=== PATIENT | female | born 1980 | race Caucasian/White ===

== ENCOUNTER 2017-09-28 12:47 | Observation (INO) | payer OTHER ==
[2017-09-22 10:05] VITALS: BP 121/89
[~2017-09-28] VITALS: Ht 165.1 cm; Wt 66.0 kg
[~2017-09-28 12:47] MED LIST: CEFAZOLIN 1,000 MG ONE; IBUP200C8 PO
[2017-09-28] MEDS ORDERED: BUPIVACAINE/PF 0.5% ONE (13:24)
[2017-09-28] MEDS ORDERED: BUPIVACAINE/PF 0.25% ONE (13:25)
[2017-09-28] MEDS ORDERED: EPINEPHRINE 1 MG/ML, 1ML ONE (13:25)
[2017-09-28] MEDS ORDERED: LACTATED RINGERS 1,000 ML IV SCH (13:32)
[2017-09-28] MEDS ORDERED: LIDOCAINE 1%, 2ML SQ PRN (14:00)
[2017-09-28 14:08] LABS: ALANINE AMINOTRANSFERASE 21 U/L (12-78); ALBUMIN 4.1 g/dL (3.4-5.0); ANION GAP 10 mmol/L (5-15); CALCIUM 9.1 mg/dL (8.5-10.1); CHLORIDE 109 mmol/L (98-107); CREATININE 0.69 mg/dL (0.55-1.02)
[2017-09-28 14:10] LABS: ALKALINE PHOSPHATASE 42 U/L (45-117); BILIRUBIN,TOTAL 0.6 mg/dL (0.2-1.0)
[2017-09-28] MEDS ORDERED: VASOPRESSIN 20 UNIT/ML, 1ML ONE (14:53)
[2017-09-28] MEDS ORDERED: MIDAZOLAM 1 MG/ML, 2ML ONE (14:57)
[2017-09-28] MEDS ORDERED: FENTANYL PF 100 MCG/2ML ONE ×2 (14:57)
[2017-09-28] MEDS ORDERED: PROPOFOL 10 MG/ML, 20ML ONE (14:58)
[2017-09-28] MEDS ORDERED: ROCURONIUM 10 MG/ML,10ML ONE (14:58)
[2017-09-28] MEDS ORDERED: DEXAMETHASONE 4 MG/ML, 1ML ONE (15:00)
[2017-09-28] MEDS ORDERED: INDIGO CARMINE 0.8%, 5ML ONE (16:20)
[2017-09-28] MEDS ORDERED: ONDANSETRON 2MG/ML, 2ML ONE (16:48)
[2017-09-28] MEDS ORDERED: GLYCOPYRROLATE 0.4 MG/2 ML, 2ML ONE (16:55)
[2017-09-28] MEDS ORDERED: NEOSTIGMINE 1 MG/ML, 10ML ONE (16:55)
[2017-09-28] MEDS ORDERED: HYDROmorphone 2 MG/ML, 1ML ONE ×2 (16:58→18:05)
[2017-09-28] MEDS ORDERED: INTERCEED 3 X 4 INCH DRESSING ONE (17:09)
[2017-09-28] MEDS ORDERED: OXYTOCIN 10 UNITS/ML, 1ML ONE (17:21)
[2017-09-28] MEDS ORDERED: hydrALAzine 20 MG/ML, 1ML IV PRN (18:00)
[2017-09-28] MEDS ORDERED: ACETAMINOPHEN 325 MG TABLET PO PRN (18:00)
[2017-09-28] MEDS ORDERED: HYDROmorphone 1 MG/ML, 1ML IV PRN (18:00)
[2017-09-28] MEDS ORDERED: PROMETHAZINE 25 MG/ML, 1ML IV PRN (18:00)
[2017-09-28] MEDS ORDERED: OXYcodone 5 MG/5 ML ORAL.SOL UDC PO PRN (18:00)
[2017-09-28] MEDS ORDERED: LABETALOL 5MG/ML, 20ML IV PRN (18:00)
[2017-09-28] MEDS ORDERED: FENTANYL PF 100 MCG/2ML IV PRN (18:00)
[2017-09-28] MEDS ORDERED: ONDANSETRON 2MG/ML, 2ML IVPush PRN (18:00)
[2017-09-28] MEDS ORDERED: MEPERIDINE/PF 50 MG/ML ONE (18:05)
[2017-09-28] MEDS ORDERED: OXYcodone 5 MG/5 ML ORAL.SOL UDC ONE (18:05)
[2017-09-28] MEDS: MEPERIDINE/PF 25MG/0.5ML IVPush PRN ×2 (18:06→18:21)
[2017-09-28] MEDS ORDERED: KETOROLAC 30 MG/1 ML ONE (18:11)
[2017-09-28 19:49] VITALS: BP 129/75
[2017-09-28] MEDS: LACTATED RINGERS 1,000 ML IV SCH (20:00)
[2017-09-28] MEDS: MORPHINE SULFATE 4 MG/ML, 1ML IVPush PRN ×2 (20:31→23:36)
[2017-09-29] MEDS: KETOROLAC 30 MG/1 ML IV SCH ×3 (00:18→12:53)
[2017-09-29] MEDS: MORPHINE SULFATE 4 MG/ML, 1ML IVPush PRN (03:08)
[2017-09-29 03:11] VITALS: BP 108/58
[2017-09-29] MEDS: LACTATED RINGERS 1,000 ML IV SCH ×2 (04:00→12:00)
[2017-09-29 05:04] LABS: BASOPHILS # (AUTO) 0.01 x10^3/uL (0-0.1); BASOPHILS % (AUTO) 0 % (0-1); EOSINOPHILS % (AUTO) 0 % (1-7); LYMPHOCYTES # (AUTO) 1.24 x10^3/uL (1-3.4); LYMPHOCYTES % (AUTO) 14 % (22-44); MD NO; MEAN CORPUSCULAR HEMOGLOBIN 31.9 pg (27.0-34.8); MEAN CORPUSCULAR HGB CONC 34.4 g/dL (32.4-35.8); MEAN CORPUSCULAR VOLUME 92.7 fL (80-100); MEAN PLATELET VOLUME 9.3 fL (7.4-10.4); MONOCYTES # (AUTO) 0.57 x10^3/uL (0.2-0.8); MONOCYTES % (AUTO) 6 % (2-9); NEUTROPHILS # (AUTO) 7.25 x10^3/uL (1.8-6.8); NEUTROPHILS % (AUTO) 80 % (42-75); PLATELET COUNT 182 x10^3/uL (130-400); RED CELL DISTRIBUTION WIDTH 12.6 % (9.6-15.2)
[2017-09-29] MEDS: OXYcodone/APAP 5/325MG TABLET PO PRN ×4 (06:46→17:43)
[2017-09-29 06:47] VITALS: BP 114/71
[2017-09-29 15:49] VITALS: BP 110/73
[2017-09-29] MEDS ORDERED: OXYC-302 PO (17:37)
== END 2017-09-29 17:45 | disposition home or self-care (01) ==
LOC: OUT 12:47 → 4NOR 19:33 → OUT 22:34
PROVIDERS: ADMIT Obstetrics & Gynecology Reproductive Endocrinology; ATTEND Obstetrics & Gynecology Reproductive Endocrinology
DX: D25.1 Intramural leiomyoma of uterus (principal); D25.2 Subserosal leiomyoma of uterus; N84.0 Polyp of corpus uteri; N80.3 Endometriosis of pelvic peritoneum; N80.2 Endometriosis of fallopian tube
CPT/HCPCS: 36415; 58140; 58558; 80053; 81025; 85025; 86850; 86900; 88305; 93005; 96374; 96375; 96376; C1765; G0378; J0171; J0690; J1100; J1170; J1885; J2175; J2250; J2405; J2590; J2704; J2710; J3010; J3490; J7120

== ENCOUNTER 2018-09-07 13:47 | Outpatient (CLI) | payer OTHER ==
[~2018-09-07 13:47] MED LIST changes: -CEFAZOLIN 1,000 MG ONE; +OXYC-302 PO
[2018-09-07] MEDS ORDERED: BETAMETHASONE 6 MG/ML, 5ML IM ONE ×2 (14:23→14:30)
[2018-09-07] MEDS ORDERED: PREN1TAB60 PO (14:37)
== END 2018-09-07 14:47 | disposition home or self-care (01) ==
LOC: LDOP 13:47
PROVIDERS: ATTEND Obstetrics & Gynecology Maternal & Fetal Medicine
DX: O09.513 Supervision of elderly primigravida, third trimester (principal); Z3A.37 37 weeks gestation of pregnancy
CPT/HCPCS: 59025; 96372; 99211; J0702; G0463

== ENCOUNTER 2018-09-08 14:01 | Outpatient (CLI) | payer OTHER ==
[~2018-09-08] VITALS: Ht 165.1 cm; Wt 73.6 kg
[~2018-09-08 14:01] MED LIST changes: +PREN1TAB60 PO
[2018-09-08 14:07] VITALS: BP 109/72
[2018-09-08] MEDS ORDERED: BETAMETHASONE 6 MG/ML, 5ML IM ONE (14:30)
== END 2018-09-08 14:20 | disposition home or self-care (01) ==
LOC: LDOP 14:01
PROVIDERS: ATTEND Obstetrics & Gynecology Maternal & Fetal Medicine
DX: O09.513 Supervision of elderly primigravida, third trimester (principal); Z3A.37 37 weeks gestation of pregnancy
CPT/HCPCS: 59025; 96372; 99211; J0702; G0463

== ENCOUNTER 2018-09-09 05:25 | Inpatient (IN) | payer OTHER ==
[~2018-09-09] VITALS: Ht 165.1 cm; Wt 73.6 kg
[2018-09-09] MEDS ORDERED: SODIUM CITRATE/CITRIC ACID 30 ML UDC ONE (05:28)
[2018-09-09] MEDS: LACTATED RINGERS 1,000 ML IV SCH ×8 (05:28→19:06)
[2018-09-09] MEDS ORDERED: NEWBORN KIT ONE (05:28)
[2018-09-09] MEDS ORDERED: METOCLOPRAMIDE 5 MG/ML, 2ML ONE (05:28)
[2018-09-09] MEDS ORDERED: OXYTOCIN 30U/ 0.9% NaCL 500ML 500 ML ONE (05:29)
[2018-09-09] MEDS ORDERED: LACTATED RINGERS 1,000 ML IVBOLUS ONE (05:30)
[2018-09-09] MEDS ORDERED: METOCLOPRAMIDE 5 MG/ML, 2ML IV ONE (05:30)
[2018-09-09] MEDS ORDERED: SODIUM CITRATE/CITRIC ACID 30 ML UDC PO ONE (05:30)
[2018-09-09 06:01] VITALS: BP 117/72
[2018-09-09 06:07] LABS: BASOPHILS # (AUTO) 0.01 x10^3/uL (0-0.1); BASOPHILS % (AUTO) 0 % (0-1); EOSINOPHILS % (AUTO) 0 % (1-7); LYMPHOCYTES # (AUTO) 1.36 x10^3/uL (1-3.4); LYMPHOCYTES % (AUTO) 12 % (22-44); MD NO; MEAN CORPUSCULAR HEMOGLOBIN 31.6 pg (27.0-34.8); MEAN CORPUSCULAR HGB CONC 34.4 g/dL (32.4-35.8); MEAN CORPUSCULAR VOLUME 91.8 fL (80-100); MEAN PLATELET VOLUME 10.7 fL (7.4-10.4); MONOCYTES # (AUTO) 0.46 x10^3/uL (0.2-0.8); MONOCYTES % (AUTO) 4 % (2-9); NEUTROPHILS # (AUTO) 10.03 x10^3/uL (1.8-6.8); NEUTROPHILS % (AUTO) 85 % (42-75); PLATELET COUNT 199 x10^3/uL (130-400); RED BLOOD COUNT 3.62 x10^6/uL (3.82-5.3); RED CELL DISTRIBUTION WIDTH 13.2 % (9.6-15.2)
[2018-09-09] MEDS ORDERED: ONDANSETRON 2MG/ML, 2ML ONE (07:20)
[2018-09-09] MEDS ORDERED: DEXAMETHASONE 4 MG/ML, 1ML ONE (07:20)
[2018-09-09] MEDS ORDERED: EPHEDRINE 50 MG/ML, 1ML ONE (07:20)
[2018-09-09] MEDS ORDERED: KETOROLAC 30 MG/1 ML ONE (07:20)
[2018-09-09] MEDS ORDERED: OXYTOCIN 10 UNITS/ML, 1ML ONE (07:20)
[2018-09-09] MEDS ORDERED: CEFAZOLIN 1,000 MG ONE (07:20)
[2018-09-09] MEDS ORDERED: PHENYLEPHRINE 10 MG/ML ONE (07:20)
[2018-09-09] MEDS ORDERED: FENTANYL PF 100 MCG/2ML ONE (07:21)
[2018-09-09] MEDS ORDERED: EPHEDRINE 50 MG/ML, 1ML IVPush PRN (07:30)
[2018-09-09] MEDS ORDERED: ONDANSETRON 2MG/ML, 2ML IVPush PRN (07:30)
[2018-09-09] MEDS ORDERED: ALBUTEROL SULFATE 2.5 MG/3 ML NPPB PRN (07:30)
[2018-09-09] MEDS ORDERED: OXYcodone 5 MG/5 ML ORAL.SOL UDC PO PRN (07:30)
[2018-09-09] MEDS ORDERED: HYDROmorphone 1 MG/ML, 1ML IV PRN (07:30)
[2018-09-09] MEDS ORDERED: MEPERIDINE/PF 25MG/0.5ML IVPush PRN (07:30)
[2018-09-09] MEDS ORDERED: hydrALAzine 20 MG/ML, 1ML IV PRN (07:30)
[2018-09-09] MEDS ORDERED: PROMETHAZINE 25 MG/ML, 1ML IV PRN (07:30)
[2018-09-09] MEDS ORDERED: HYDROcodone/APAP 7.5-325MG/15ML UDC PO PRN (07:30)
[2018-09-09] MEDS ORDERED: FENTANYL PF 100 MCG/2ML IV PRN (07:30)
[2018-09-09] MEDS ORDERED: LABETALOL 5MG/ML, 20ML IV PRN (07:30)
[2018-09-09] MEDS ORDERED: MIDAZOLAM 1 MG/ML, 2ML IV PRN (07:30)
[2018-09-09] MEDS: OXYTOCIN 30U/ 0.9% NaCL 500ML 500 ML IV SCH ×4 (09:06→19:06)
[2018-09-09] MEDS ORDERED: METOCLOPRAMIDE 5 MG/ML, 2ML IV PRN (09:30)
[2018-09-09] MEDS ORDERED: ACETAMINOPHEN 325 MG TABLET PO PRN (09:30)
[2018-09-09] MEDS ORDERED: BISACODYL 10 MG SUPP PR PRN (09:30)
[2018-09-09] MEDS ORDERED: OXYcodone/APAP 5/325MG TABLET PO PRN (09:30)
[2018-09-09] MEDS ORDERED: METHYLERGONOVINE 0.2 MG/ML IM PRN (09:30)
[2018-09-09 10:50] VITALS: BP 114/72
[2018-09-09] MEDS: DOCUSATE 100 MG CAPSULE PO PRN ×2 (10:55→20:11)
[2018-09-09] MEDS: OXYcodone IR 5MG TABLET PO PRN ×3 (11:56→20:12)
[2018-09-09] MEDS ORDERED: KETOROLAC 30 MG/1 ML IVPush SCH (15:00)
[2018-09-09 16:08] LABS: BASOPHILS # (AUTO) 0.01 x10^3/uL (0-0.1); BASOPHILS % (AUTO) 0 % (0-1); EOSINOPHILS % (AUTO) 0 % (1-7); LYMPHOCYTES # (AUTO) 1.14 x10^3/uL (1-3.4); LYMPHOCYTES % (AUTO) 8 % (22-44); MD NO; MEAN CORPUSCULAR HEMOGLOBIN 30.5 pg (27.0-34.8); MEAN CORPUSCULAR HGB CONC 33.2 g/dL (32.4-35.8); MEAN CORPUSCULAR VOLUME 91.8 fL (80-100); MEAN PLATELET VOLUME 10.3 fL (7.4-10.4); MONOCYTES # (AUTO) 0.61 x10^3/uL (0.2-0.8); MONOCYTES % (AUTO) 4 % (2-9); NEUTROPHILS # (AUTO) 13.43 x10^3/uL (1.8-6.8); NEUTROPHILS % (AUTO) 88 % (42-75); PLATELET COUNT 183 x10^3/uL (130-400); RED BLOOD COUNT 2.89 x10^6/uL (3.82-5.3); RED CELL DISTRIBUTION WIDTH 13.2 % (9.6-15.2)
[2018-09-09 16:50] VITALS: BP 112/70
[2018-09-09 19:45] VITALS: BP 94/56
[2018-09-10] MEDS: IBUPROFEN 600 MG TABLET PO PRN ×4 (00:04→19:17)
[2018-09-10 00:15] VITALS: BP 107/70
[2018-09-10] MEDS: LACTATED RINGERS 1,000 ML IV SCH ×5 (01:06→16:20)
[2018-09-10 04:30] VITALS: BP 101/66
[2018-09-10] MEDS: OXYTOCIN 30U/ 0.9% NaCL 500ML 500 ML IV SCH ×2 (05:06→15:12)
[2018-09-10] MEDS: OXYcodone IR 5MG TABLET PO PRN ×5 (05:55→19:17)
[2018-09-10 07:30] VITALS: BP 105/66
[2018-09-10] MEDS: PRENATAL VIT/IRON/FA 1 EACH TABLET PO SCH (08:20)
[2018-09-10] MEDS: DOCUSATE 100 MG CAPSULE PO PRN ×2 (08:20→19:17)
[2018-09-10 19:20] VITALS: BP 105/68
[2018-09-11] MEDS: OXYcodone IR 5MG TABLET PO PRN ×6 (00:36→23:16)
[2018-09-11] MEDS: SIMETHICONE 80 MG CHEW TAB PO PRN ×4 (00:36→20:57)
[2018-09-11] MEDS: OXYTOCIN 30U/ 0.9% NaCL 500ML 500 ML IV SCH ×2 (01:06→07:59)
[2018-09-11] MEDS: LACTATED RINGERS 1,000 ML IV SCH ×5 (01:06→17:29)
[2018-09-11] MEDS: IBUPROFEN 600 MG TABLET PO PRN ×4 (01:19→20:57)
[2018-09-11 07:32] VITALS: BP 114/74
[2018-09-11] MEDS: PRENATAL VIT/IRON/FA 1 EACH TABLET PO SCH (07:34)
[2018-09-11] MEDS: DOCUSATE 100 MG CAPSULE PO PRN ×2 (07:34→20:57)
[2018-09-11] MEDS: FERROUS GLUCONATE 324 MG TABLET PO SCH (07:34)
[2018-09-11 19:40] VITALS: BP 105/68
[2018-09-12] MEDS: IBUPROFEN 600 MG TABLET PO PRN ×2 (04:46→11:57)
[2018-09-12] MEDS: OXYcodone IR 5MG TABLET PO PRN ×3 (04:47→12:50)
[2018-09-12 08:00] VITALS: BP 123/79
[2018-09-12] MEDS: DOCUSATE 100 MG CAPSULE PO PRN (08:36)
[2018-09-12] MEDS: FERROUS GLUCONATE 324 MG TABLET PO SCH (08:36)
[2018-09-12] MEDS: PRENATAL VIT/IRON/FA 1 EACH TABLET PO SCH (08:36)
[2018-09-12] MEDS ORDERED: DOCU-131 PO (10:56)
[2018-09-12] MEDS ORDERED: OXYC-302 PO (10:56)
[2018-09-12] MEDS ORDERED: FERR324T8 PO (11:00)
[2018-09-12] MEDS ORDERED: IBUP-1222 PO (11:00)
== END 2018-09-12 13:37 | disposition home or self-care (01) | DRG 788 ==
LOC: LDIP 05:25 → 2NW 10:15
PROVIDERS: ADMIT Obstetrics & Gynecology Maternal & Fetal Medicine; ATTEND Obstetrics & Gynecology Maternal & Fetal Medicine
PROC: 10D00Z1 Extraction of Products of Conception, Low, Open Approach (ICD-10-PCS; principal; 2018-09-09)
DX: O99.02 Anemia complicating childbirth (principal); D64.9 Anemia, unspecified; Z37.0 Single live birth; Z3A.37 37 weeks gestation of pregnancy
CPT/HCPCS: 36415; 85025; 86850; 86900; G0378; J0690; J1100; J1885; J2405; J3010; J2370; J2590; J2765; J7120